=== PATIENT | female | born 1955 | race African-American/Black ===

== ENCOUNTER 2016-12-24 01:48 | Emergency (ER) | payer OTHER, MEDICAID ==
[~2016-12-24] VITALS: Ht 167.6 cm; Wt 73.0 kg
[~2016-12-24 01:48] MED LIST: ABILIFY; BENADRYL; CRESTOR; ELIMC; METFORMIN; PHENYTOIN SODIUM; SERTRALINE
[2016-12-24 01:50] VITALS: BP 107/81
[2016-12-24] MEDS ORDERED: TETANUS, DIPHTHERIA, PERTUSSIS VAC/PF 0.5ML (>7YR OLD) IM ONE (02:45)
== END 2016-12-24 05:01 | disposition left against medical advice (07) ==
LOC: ER 02:06
DX: S00.211A Abrasion of right eyelid and periocular area, initial encounter (principal); F17.210 Nicotine dependence, cigarettes, uncomplicated; E11.9 Type 2 diabetes mellitus without complications; Y04.8XXA Assault by other bodily force, initial encounter; Y93.89 Activity, other specified; Y92.89 Other specified places as the place of occurrence of the external cause; Y99.8 Other external cause status
CPT/HCPCS: 90471; 90715; 99283

== ENCOUNTER 2020-01-15 03:10 | Emergency (ER) | payer MEDICAID, OTHER ==
[~2020-01-15] VITALS: Ht 167.6 cm; Wt 100.0 kg
[2020-01-15 03:13] VITALS: BP 140/75
== END 2020-01-15 06:51 | disposition home or self-care (01) ==
LOC: ER 03:38
DX: Z48.01 Encounter for change or removal of surgical wound dressing (principal)
CPT/HCPCS: 99283

== ENCOUNTER 2024-11-29 13:45 | Emergency (ER) | payer MEDICARE, MEDICAID ==
[~2024-11-29] VITALS: Ht 167.6 cm; Wt 100.0 kg
[2024-11-29 13:47] VITALS: TEMP 36.7; O2SAT 95
[2024-11-29] MEDS ORDERED: CELE100C MT (14:23)
[2024-11-29 14:42] VITALS: BP 90/72; PULSE 83; RESP 18; O2SAT 100
== END 2024-11-29 14:45 | disposition home or self-care (01) ==
LOC: ER 13:45
DX: G89.29 Other chronic pain (principal); M25.562 Pain in left knee; E11.9 Type 2 diabetes mellitus without complications; F31.9 Bipolar disorder, unspecified; I10 Essential (primary) hypertension; M17.12 Unilateral primary osteoarthritis, left knee; Z79.1 Long term (current) use of non-steroidal anti-inflammatories (NSAID)
CPT/HCPCS: 99283

== ENCOUNTER 2024-12-01 23:36 | Emergency (ER) | payer MEDICARE, MEDICAID ==
[~2024-12-01] VITALS: Ht 165.1 cm; Wt 91.0 kg
[~2024-12-01 23:36] MED LIST changes: +CELE100C MT
[2024-12-02 00:04] VITALS: BP 141/62; PULSE 84; RESP 16; TEMP 36.6; O2SAT 96
== END 2024-12-02 02:11 | disposition left against medical advice (07) ==
LOC: ER 23:36
DX: R51.9 Headache, unspecified (principal); Z53.21 Procedure and treatment not carried out due to patient leaving prior to being seen by health care provider

== ENCOUNTER 2024-12-04 09:52 | Emergency (ER) | payer MEDICARE, OTHER ==
[~2024-12-04] VITALS: Ht 157.5 cm; Wt 86.0 kg
[2024-12-04] MEDS: MIDAZOLAM HCL 2 MG/2 ML VIAL IM ONE (10:42)
[2024-12-04] MEDS: HALOPERIDOL LACTATE 5MG/ML VIAL IM ONE (10:43)
[2024-12-04 10:58] LABS: BASOPHILS % 1.1 % (0.0-2.0); EOSINOPHILS % 2.4 % (0.0-5.0); HEMATOCRIT. 29.6 % (36.0-48.0); HEMOGLOBIN. 10.0 g/dL (12.0-16.0); LYMPHOCYTES % 31.9 % (20.0-50.0); MEAN PLATELET VOLUME 7.6 fl (7.4-10.4); MONOCYTES % 11.4 % (2.0-8.0); NEUTROPHILS % 53.2 % (40.0-76.0); PLATELET 264 x1000/uL (130-400); RED BLOOD CELL COUNT 3.04 mill/uL (4.2-5.4); RED CELL DISTRIBUTION WIDTH 13.8 % (11.6-14.6)
[2024-12-04 11:06] LABS: UREA NITROGEN BLOOD 20 mg/dL (9-23)
[2024-12-04 11:07] LABS: CREATININE 1.4 mg/dL (0.6-1.0); ETHANOL BLOOD < 10 mg/dL (<10)
[2024-12-04 11:08] LABS: ASPARTATE AMINOTRANSFERASE 20 IU/L (<34)
[2024-12-04 11:09] LABS: BILIRUBIN DIRECT 0.2 mg/dL (<=3.0); BILIRUBIN TOTAL 0.6 mg/dL (0.1-1.0); PROTEIN TOTAL 6.9 g/dL (6.0-8.3)
[2024-12-04] MEDS: IOHEXOL-300 100 ML BOTTLE ONE (13:09)
[2024-12-04] MEDS ORDERED: OLANZAPINE 5MG TABLET ODT PO ONE (19:30)
[2024-12-04] MEDS: OLANZAPINE 10 MG/VIAL IM ONE (19:57)
[2024-12-04] MEDS: LORAZEPAM 2MG/ML UD SYRINGE IM NR (19:57)
[2024-12-05 03:12] LABS: CLARITY URINE CLEAR (CLEAR); COLOR URINE YELLOW (YELLOW); GLUCOSE URINE NEGATIVE (NEGATIVE); KETONES URINE NEGATIVE (NEGATIVE); LEUKOCYTE ESTERASE URINE NEGATIVE (NEGATIVE); NITRITE URINE NEGATIVE (NEGATIVE); OCCULT BLOOD URINE NEGATIVE (NEGATIVE); PH URINE 5.0 (4.5-8.0); PROTEIN URINE NEGATIVE (NEGATIVE); SPECIFIC GRAVITY URINE 1.042 (1.005-1.030); UROBILINOGEN URINE 0.2 E.U./dL (0.2-1.0)
[2024-12-05 03:37] LABS: *AMPHETAMINES SCREEN URINE NEGATIVE (NEGATIVE); *BARBITURATES SCREEN URINE NEGATIVE (NEGATIVE); *BENZODIAZEPINES SCREEN URINE PRESUMPTIVE POSITIVE (NEGATIVE); *COCAINE SCREEN URINE NEGATIVE (NEGATIVE); METHADONE URINE SCREEN NEGATIVE (NEGATIVE)
[2024-12-05 03:38] LABS: CANNABINOID URINE SCREEN NEGATIVE (NEGATIVE); ECSTASY MDMA SCREEN URINE NEGATIVE (NEGATIVE); OPIATES URINE SCREEN NEGATIVE (NEGATIVE); PHENCYCLIDINE URINE SCREEN NEGATIVE (NEGATIVE)
[2024-12-05] MEDS: MIDAZOLAM HCL 2 MG/2 ML VIAL IM ONE ×2 (12:36→21:00)
[2024-12-05] MEDS: HALOPERIDOL LACTATE 5MG/ML VIAL IM ONE ×2 (12:36→21:00)
[2024-12-05] MEDS: OLANZAPINE 5MG TABLET ODT PO SCH (20:58)
[2024-12-05 21:00] VITALS: O2SAT 98
[2024-12-05] MEDS: DIPHENHYDRAMINE 50MG/ML VIAL IM ONE (21:00)
[2024-12-06] MEDS: QUETIAPINE FUMARATE 25MG TABLET PO ONE (02:19)
[2024-12-06] MEDS: LORAZEPAM 2MG/ML UD SYRINGE IM NR (03:56)
[2024-12-06] MEDS: DIPHENHYDRAMINE 50MG/ML VIAL IM PRN (04:59)
[2024-12-06] MEDS: OLANZAPINE 10 MG/VIAL IM ONE ×2 (04:59→22:58)
[2024-12-06] MEDS: LORAZEPAM 1MG TABLET PO ONE (19:51)
[2024-12-07] MEDS: OLANZAPINE 10 MG/VIAL IM ONE (07:03)
[2024-12-07] MEDS: LORAZEPAM 2MG/ML UD SYRINGE IM NR (08:00)
[2024-12-07 10:26] VITALS: BP 126/70; PULSE 87; RESP 16; TEMP 36.8; O2SAT 98
== END 2024-12-07 10:52 | disposition home or self-care (01) ==
LOC: ER 09:52 → ENRESERV 18:08 → CANRESERV 18:08 → CANBEDREQ 19:03 → ER 12-07 10:52
DX: R45.1 Restlessness and agitation (principal); R45.850 Homicidal ideations; E11.9 Type 2 diabetes mellitus without complications; F20.9 Schizophrenia, unspecified; F31.9 Bipolar disorder, unspecified; I10 Essential (primary) hypertension; Z79.1 Long term (current) use of non-steroidal anti-inflammatories (NSAID); Z88.0 Allergy status to penicillin; Z90.49 Acquired absence of other specified parts of digestive tract; Z79.899 Other long term (current) drug therapy
CPT/HCPCS: 80076; 80305; 80048; 81003; 80307; 80329; 80320; 85025; 36415; 74177; 96372 ×4; 99285; 87426; Q9967; J3490 ×3; J1630 ×2; J2060 ×3; J2250 ×2; J1200 ×2; G0480